=== PATIENT | female | born 1990 | race Two or more races ===

== ENCOUNTER 2021-02-21 19:41 | Emergency (ER) | payer OTHER ==
[~2021-02-21] VITALS: Ht 170.2 cm; Wt 96.7 kg
[2021-02-21 19:48] VITALS: BP 142/72
--- NOTE | 2021-02-21 22:34 | NUR ---
Patient given discharge instructions and they have confirmed that they understand the instructions. Patient ambulatory with steady gait.
== END 2021-02-21 22:38 | disposition home or self-care (01) ==
LOC: ED 22:10
DX: R51.9 Headache, unspecified (principal); M25.531 Pain in right wrist; V59.49XA Driver of pick-up truck or van injured in collision with other motor vehicles in traffic accident, initial encounter; Y93.89 Activity, other specified; Y92.410 Unspecified street and highway as the place of occurrence of the external cause; Y99.8 Other external cause status
CPT/HCPCS: 99283